=== PATIENT | female | born 1945 | race Two or more races ===

== ENCOUNTER 2025-02-14 18:05 | Emergency (ER) | payer OTHER ==
[~2025-02-14] VITALS: Ht 154.9 cm; Wt 61.9 kg
--- NOTE | 2025-02-14 18:37 | ED.PDOC ---
Musculoskeletal HPI Comments 79 year old female came to your due to right hand pain. Patient has history of diabetes. States for the past 6 days, she has been having right hand pain and swelling, progressively worsening, radiating up her right shoulder. Denies any fever. Denies any recent trauma. Chief Complaint: Upper Extremity Time Seen by MD: 18:36 Reviewed Notes: Nurses Notes Allergies: Coded Allergies: Penicillins (Verified Allergy, Severe, SOB, nausea, 02/15/25) Information Source: Patient Mode of Arrival: Ambulatory Location: Right Extremity Location: Hand Timing: Days Prehospital treatment: None Severity: Moderate Able to Move Extremity: Yes Bear Weight: Limited Pain: Moderate Hand Dominance: Right Mechanism: Spontaneous Circumstances: Spontaneous Onset of Symptoms: Spontaneous Symptoms: Swelling, Pain Associated signs and symptoms: Hand pain (Right) Past Medical History PAST MEDICAL HISTORY: DM Surgical History: Denies all surgeries HOUSE FELLOW History: Denies all HOUSE FELLOW Hx Family History Family History: Reviewed,noncontributory to illness Social History Smoker: Non-Smoker Alcohol: Denies ETOH Use Drugs: Denies Drug Use Lives In: Home Constitutional: denies: chills, diaphoresis, fatigue, fever, malaise, sweats, weakness, others EENTM: denies: blurred vision, double vision, ear bleeding, ear discharge, ear drainage, ear pain, ear ringing, eye pain, eye redness, hearing loss, mouth pain, mouth swelling, nasal discharge, nose bleeding, nose congestion, nose pain, photophobia, tearing, throat pain, throat swelling, voice changes, others Respiratory: denies: cough, hemoptysis, orthopnea, SOB at rest, shortness of breath, SOB with excertion, stridor, wheezing, others Cardiovascular: denies: chest pain, dizzy spells, diaphoresis, Dyspnea on exertion, edema, irregular heart beat, left arm pain, lightheadedness, palpitations, PND, syncope, others Gastrointestinal: denies: abdomen distended, abdominal pain, blood streaked bowels, constipated, diarrhea, dysphagia, difficulty swallowing, hematemesis, melena, nausea, poor appetite, poor fluid intake, rectal bleeding, rectal pain, vomiting, others Genitourinary: denies: abnormal vagina bleeding, burning, dyspareunia, dysuria, flank pain, frequency, hematuria, incontinence, pain, , vagina discharge, urgency, others Neurological: denies: dizziness, fainting, headache, left sided numbness, left sided weakness, numbness, paresthesia, pre-existing deficit, right sided numbness, right sided weakness, seizure, speech problems, tingling, tremors, weakness, others Musculoskeletal: reports: others (Swelling and right hand); denies: back pain, gout, joint pain, joint swelling, muscle pain, muscle stiffness, neck pain Integumetry: denies: bruises, change in color, change in hair/nails, dryness, laceration, lesions, lumps, rash, wounds, others Allergic/Immunocompromised: denies: Difficulty Healing, Frequent Infections, Hives, Itching, others Hematologic/Lymphatic: denies: anemia, blood clots, easy bleeding, easy bruising, swollen glands, others Endocrine: denies: excessive hunger, excessive sweating, excessive thirst, excessive urination, flushing, intolerance to cold, intolerance to heat, unexplained weight gain, unexplained weight loss, others Psychiatric: denies: anxiety, bipolar disorder, depression, hopeless, panic disorder, schizophrenia, sleepless, suicidal, others Physical Exam General Appearance: No Apparent Distress, Normal HEENT: Normal ENT Inspection, Pharynx Normal, TMs Normal Neck: Full Range of Motion, Non-Tender, Normal, Normal Inspection Respiratory: Chest Non-Tender, Lungs Clear, No Accessory Muscle Use, No Respiratory Distress, Normal Breath Sounds Cardiovascular: No Edema, No JVD, No Murmur, No Gallop, Normal Peripheral Pulses, Regular Rate/Rhythm Breast Exam: Deferred Gastrointestinal: No Organomegaly, Non Tender, No Pulsatile Mass, Normal Bowel Sounds, Soft Genitalia: Deferred Pelvic: Deferred Rectal: Deferred Extremities: No calf tenderness, Normal capillary refill, Normal range of motion, No pedal edema, Swelling (Right hand) Musculoskeletal : Apperance: Normal Neurologic: Alert, digital asset coordinator II-XII nml as Tested, No Motor Deficits, Normal Affect, Normal Mood, No Sensory Deficits Cerebellar Function: Normal Reflexes: Normal Skin: Dry, Normal Color, Warm Lymphatic: No Adenopathy Was a procedure done? Was a procedure done?: No Differential Diagnosis EXT Differential Diagnosis: Cellulitis, CHF, Deep Vein Thrombosis, Sprain, Strain X-Ray, Labs, Meds, VS Vital Signs Date Time Temp Pulse Resp B/P (MAP) Pulse Ox O2 Delivery O2 Flow Rate FiO2 02/15/25 01:20 98.6 80 14 140/61 (87) 100 98.6 02/15/25 01:20 80 14 100 Room Air* 0 21 02/14/25 18:19 97.9 62 18 153/53 (86) 98 97.9 Lab Test 02/15/25 01:36 02/14/25 19:03 02/14/25 18:50 Range/Units POC Glucose 167 H 70-106 mg/dl White Blood Count 10.5 4.4-10.8 10^3/uL Red Blood Count 3.98 L 4.0-5.20 10^6/uL Hemoglobin 11.7 L 12.2-16.2 g/dL Hematocrit 35.4 L 36.0-46.0 % Mean Corpuscular Volume 88.9 80.0-100.0 fL Mean Corpuscular Hemoglobin 29.4 28.0-32.0 pg Mean Corpuscular Hemoglobin Concent 33.1 32.0-36.0 g/dL Red Cell Distribution Width 14.5 H 11.8-14.3 % Platelet Count 337 140-450 10^3/uL Mean Platelet Volume 9.2 6.9-10.8 fL Neutrophils (%) (Auto) 56.5 37.0-80.0 % Lymphocytes (%) (Auto) 33.9 10.0-50.0 % Monocytes (%) (Auto) 7.0 0.0-12.0 % Eosinophils (%) (Auto) 1.6 0.0-7.0 % Basophils (%) (Auto) 1.0 0.0-2.0 % Neutrophils # (Auto) 5.9 1.6-8.6 10 ^3/uL Lymphocytes # (Auto) 3.6 0.4-5.4 10 ^3/uL Monocytes # (Auto) 0.7 0-1.3 10 ^3/uL Eosinophils # (Auto) 0.2 0-0.8 10 ^3/uL Basophils # (Auto) 0.1 0-0.2 10 ^3/uL Nucleated Red Blood Cells 0.0 % Sodium Level 135 L 136-145 mmol/L Potassium Level 4.1 3.5-5.1 mmol/L Chloride Level 101 98-107 mmol/L Carbon Dioxide Level 24 20-31 mmol/L Anion Gap 10 5-15 Blood Urea Nitrogen 20 9-23 mg/dL Creatinine 0.77 0.550-1.02 mg/dL Glomerular Filtration Rate Calc 79 >90 mL/min BUN/Creatinine Ratio 26.0 H 10.0-20.0 Serum Glucose 203 H 74-106 mg/dL Calcium Level 9.9 8.7-10.4 mg/dL Total Bilirubin 0.3 0.2-1.0 mg/dL Aspartate Amino Transferase (AST) 12 L 13-40 U/L Alanine Aminotransferase (ALT) 14 7-40 U/L Alkaline Phosphatase 98 46-116 U/L Total Protein 7.3 5.7-8.2 g/dL Albumin 4.5 3.2-4.8 g/dL Lactic Acid Level 1.4 0.4-2.0 mmol/L Current Medications Medications (Trade) Dose Ordered Sig/Henri Route Start Time Stop Time Status Last Admin Vancomycin HCl 200 ml @ 200 mls/hr ONCE ONCE IV 02/14/25 22:15 02/14/25 23:14 DC 02/15/25 01:30 Ceftriaxone Sodium 50 ml @ 100 mls/hr ONCE ONCE IV 02/15/25 03:00 02/15/25 03:29 DC 02/15/25 02:46 XY R HAND 3 VIEW XRAY, February 14, 2025 INDICATION: right hand swelling TECHNICAL DATA: Frontal, oblique and lateral views were obtained of the right hand. COMPARISON: None FINDINGS: There are productive arthritic changes involving the interphalangeal joint of the thumb in the distal interphalangeal jjoint of the 2nd digit. There is generalized loss of joint space involving the distal interphalangeal joints of digits 3 4 and 5 in the proximal interphalangeal joints of digits 234 and 5. There is periarticular osteopenia involving the metacarpal phalangeal joints. Wrist appears to be within normal limits IMPRESSION: 1. 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 EXAM: XY R ELBOW 3 VIEW XRAY HISTORY: right arm swelling COMPARISON: None TECHNIQUE: Three views of the right elbow were performed. FINDINGS: There are no fractures. There is enthesopathy involving both the lateral and medial epicondyles. Suggesting possible chronic epicondylitis. IMPRESSION: 1. Degenerative enthesopathy involving the lateral and medial epicondyles . no fracture CHEST RADIOGRAPH Indication: fever Technique: Single frontal view of the chest was obtained Comparison: None FINDINGS: heart size remains within normal limits trachea is midline. There are degenerative changes involving the shoulders bilaterally. Study is hypoinflated and there bilateral increased peribronchial markings suggesting bronchitis or asthma possibly viral infection. IMPRESSION: Hypoinflated study with increased peribronchial markings. Time of 1ST Reevaluation: 18:33 Reevaluation 1ST: Unchanged Patient Education/Counseling: Diagnosis, Treatment Family Education/Counseling: No Family Present Departure 1 Departure Time of Disposition: 04:24 (Patient has cellulitis of the right hand. Patient has been awaiting acceptance by [facility]. Patient decided to AMA and she got tired of waiting 10 hours) Impression: Primary Impression: Cellulitis of right hand Disposition: 07 LEFT AGAINST MEDICAL ADVICE Condition: Serious Critical Care Note Critical Care Time?: No Stability Stability form required: No Heart Score Heart Score: Heart Score Response (Comments) Value History N/A 0 EKG N/A 0 Age N/A 0 Risk Factors N/A 0 Troponin N/A 0 Total 0 I personally scribed for CHRISTY HYDE MD ([email or web address]) on 02/14/25 at 18:37. Electronically submitted by Casey Mireles ([employer]). I personally scribed for CHRISTY HYDE MD ([email or web address]) on 02/14/25 at 20:09. Electronically submitted by Casey Mireles ([employer]). CHRISTY HYDE MD Feb 14, 2025 18:37
[2025-02-14 19:31] LABS: Basophils # (auto) 0.1 10 ^3/uL (0-0.2); Eosinophils # (auto) 0.2 10 ^3/uL (0-0.8); Eosinophils % (auto) 1.6 % (0.0-7.0); Hematocrit 35.4 % (36.0-46.0); Hemoglobin 11.7 g/dL (12.2-16.2); Lymphocytes # (auto) 3.6 10 ^3/uL (0.4-5.4); Lymphocytes % (auto) 33.9 % (10.0-50.0); Mean Corpuscular Hemoglobin 29.4 pg (28.0-32.0); Mean Corpuscular Hgb Conc. 33.1 g/dL (32.0-36.0); Mean Corpuscular Volume 88.9 fL (80.0-100.0); Monocytes # (auto) 0.7 10 ^3/uL (0-1.3); Neutrophils # (auto) 5.9 10 ^3/uL (1.6-8.6); Neutrophils % (auto) 56.5 % (37.0-80.0); Platelet Count (auto) 337 10^3/uL (140-450); Red Blood Cells 3.98 10^6/uL (4.0-5.20); Red Cell Distribution Width 14.5 % (11.8-14.3); White Blood Cell 10.5 10^3/uL (4.4-10.8)
--- NOTE | 2025-02-14 19:31 | DVH ---
XY R HAND 3 VIEW XRAY, February 14, 2025 INDICATION: right hand swelling TECHNICAL DATA: Frontal, oblique and lateral views were obtained of the right hand. COMPARISON: None FINDINGS: There are productive arthritic changes involving the interphalangeal joint of the thumb in the distal interphalangeal jjoint of the 2nd digit. There is generalized loss of joint space involving the dist al interphalangeal joints of digits 3 4 and 5 in the proximal interphalangeal joints of digits 234 an d 5. There is periarticular osteopenia involving the metacarpal phalangeal joints. Wrist appears to b e within normal limits IMPRESSION: 1. 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
--- NOTE | 2025-02-14 19:36 | DVH ---
CHEST RADIOGRAPH Indication: fever Technique: Single frontal view of the chest was obtained Comparison: None FINDINGS: heart size remains within normal limits trachea is midline. There are degenerative changes involving the shoulders bilaterally. Study is hypoinflated and there bilateral increased peribronchial marking s suggesting bronchitis or asthma possibly viral infection. IMPRESSION: Hypoinflated study with increased peribronchial markings.
[2025-02-14 19:49] LABS: Alanine Aminotransferase 14 U/L (7-40); Albumin 4.5 g/dL (3.2-4.8); Alkaline Phosphatase 98 U/L (46-116); Anion Gap 10 (5-15); Bilirubin, Total 0.3 mg/dL (0.2-1.0); Blood Urea Nitrogen 20 mg/dL (9-23); Calcium 9.9 mg/dL (8.7-10.4); Carbon Dioxide 24 mmol/L (20-31); Chloride 101 mmol/L (98-107); Potassium 4.1 mmol/L (3.5-5.1); Total Protein 7.3 g/dL (5.7-8.2)
[2025-02-14 19:52] LABS: Aspartate Aminotransferase 12 U/L (13-40); Glucose 203 mg/dL (74-106); Sodium 135 mmol/L (136-145)
--- NOTE | 2025-02-14 19:59 | DVH ---
EXAM: XY R ELBOW 3 VIEW XRAY HISTORY: right arm swelling COMPARISON: None TECHNIQUE: Three views of the right elbow were performed. FINDINGS: There are no fractures. There is enthesopathy involving both the lateral and medial epicondyles. Sugg esting possible chronic epicondylitis. IMPRESSION: 1. Degenerative enthesopathy involving the lateral and medial epicondyles . no fracture
[2025-02-15 01:20] VITALS: PULSE 80; RESP 14; TEMP 98.6; O2SAT 100
[2025-02-15] MEDS: VANCOMYCIN 1GM/200ML PM 200 ML IV ONE (01:30)
[2025-02-15] MEDS: CEFEPIME 2GM/50ML NS 50 ML IV ONE (01:31)
[2025-02-15] MEDS: cefTRIAXone 1GM/50ML D5W 50 ML IV ONE (02:46)
[2025-02-15 03:30] VITALS: BP 125/54; PULSE 75; RESP 19; O2SAT 100
== END 2025-02-15 04:32 | disposition left against medical advice (07) ==
LOC: ER 18:14
DX: L03.113 Cellulitis of right upper limb (principal); E11.9 Type 2 diabetes mellitus without complications; Z88.0 Allergy status to penicillin
CPT/HCPCS: 36415; 71045; 73080; 73130; 80053; 82947; 83605; 85025; 87040; 96365; 96367; 99284; J0696; J3370; 82962